=== PATIENT | male | born 1965 | race African-American/Black ===

== ENCOUNTER 2023-08-27 01:23 | Emergency (ER) | payer MEDICAID, OTHER ==
[~2023-08-27] VITALS: Ht 170.2 cm; Wt 90.0 kg
[2023-08-27 02:33] LABS: Basophils # (auto) 0.1 10 ^3/uL (0-0.2); Basophils % (auto) 1.2 % (0.0-2.0); Eosinophils # (auto) 0.2 10 ^3/uL (0-0.8); Eosinophils % (auto) 4.1 % (0.0-7.0); Hematocrit 27.2 % (41.0-53.0); Hemoglobin 8.9 g/dL (13.5-17.5); Lymphocytes # (auto) 1.5 10 ^3/uL (0.4-5.4); Lymphocytes % (auto) 35.9 % (10.0-50.0); Mean Corpuscular Hemoglobin 28.7 pg (28.0-32.0); Mean Corpuscular Hgb Conc. 32.7 g/dL (32.0-36.0); Mean Corpuscular Volume 87.7 fL (80.0-100.0); Monocytes # (auto) 0.4 10 ^3/uL (0-1.3); Neutrophils % (auto) 48.8 % (37.0-80.0); Nucleated Red Blood Cells % 0.5 %; White Blood Cell 4.1 10^3/uL (4.4-10.8)
[2023-08-27 02:34] LABS: Red Cell Distribution Width 20.9 % (11.8-14.3)
[2023-08-27 02:54] LABS: Alanine Aminotransferase 14 U/L (7-40); Albumin 3.7 g/dL (3.2-4.8); Alkaline Phosphatase 80 U/L (46-116); Anion Gap 13 (5-15); Aspartate Aminotransferase 34 U/L (13-40); BUN/Creatinine Ratio 4.5 (10.0-20.0); Blood Urea Nitrogen 6 mg/dL (9-23); Carbon Dioxide 21 mmol/L (20-30); Chloride 103 mmol/L (98-107); Glucose 90 mg/dL (74-106); Magnesium 1.6 mg/dL (1.6-2.6); Potassium 3.6 mmol/L (3.5-5.1); Sodium 137 mmol/L (136-145)
[2023-08-27 02:55] LABS: Bilirubin, Total 0.2 mg/dL (0.2-1.0); Total Protein 7.4 g/dL (5.7-8.2)
[2023-08-27 02:58] LABS: INR 1.04 (0.9-1.15); Partial Thromboplastin Time 25.8 SEC (24.5-34.5); Prothrombin Time 10.9 sec (9.3-11.8)
[2023-08-27 03:34] LABS: Amphetamine Screen, Urine Neg (NEGATIVE); Barbiturate Scree,Urine Neg (NEGATIVE); Benzodiazephine Screen, Urine Neg (NEGATIVE); Cannabinoid Screen, Urine Pos (NEGATIVE); Cocaine Screen, Urine Neg (NEGATIVE); Opiate Scree,Urine Neg (NEGATIVE); Phencyclidine Screen, Urine Neg (NEGATIVE)
[2023-08-27 04:00] VITALS: PULSE 98; RESP 18; O2SAT 98
[2023-08-27] MEDS: levETIRAcetam 1000 mg/100ml 100 ML IV ONE (04:08)
[2023-08-27] MEDS: IBUPROFEN 800 MG TAB PO ONE (04:08)
[2023-08-27] MEDS: QUEtiapine FUMARATE 100 MG TAB PO ONE (04:09)
[2023-08-27 04:56] LABS: Anisocytosis Moderate; Platelet Estimate Adequate
[2023-08-27 04:57] LABS: Hypochromia Slight; Target Cell FEW
[2023-08-27] MEDS: SODIUM CHLORIDE 0.9% 2,000 ML IV ONE (06:28)
[2023-08-27] MEDS: LORazepam 0.5 MG TAB PO ONE (07:02)
[2023-08-27 07:15] VITALS: PULSE 89; RESP 13; O2SAT 91
[2023-08-27 14:40] VITALS: BP 119/80; PULSE 95; RESP 14; TEMP 98.4; O2SAT 98
== END 2023-08-27 17:22 | disposition home or self-care (01) ==
LOC: ER 01:23 → EDBD 01:23 → ER 17:22
DX: R55 Syncope and collapse (principal); E11.9 Type 2 diabetes mellitus without complications; I10 Essential (primary) hypertension; Z79.899 Other long term (current) drug therapy
CPT/HCPCS: 36415; 70450; 71045; 80053; 80307; 83735; 83880; 84484; 85025; 85610; 85730; 93005; 96361; 96365; 99285; J1953; J7030